=== PATIENT | male | born 1930 | race Two or more races ===

== ENCOUNTER 2016-11-30 16:07 | Emergency (ER) | payer MEDICARE, OTHER ==
[~2016-11-30] VITALS: Ht 152.4 cm; Wt 60.8 kg
[2016-11-30] MEDS ORDERED: ACETAMINOPHEN 325 MG TABLET ONE (16:28)
[2016-11-30] MEDS ORDERED: ACETAMINOPHEN 325 MG TABLET PO ONE (16:30)
[2016-11-30 18:38] VITALS: BP 149/62
== END 2016-11-30 18:39 | disposition home or self-care (01) ==
LOC: ER 16:16 → EDBD 16:16 → ER 18:39
DX: S09.90XA Unspecified injury of head, initial encounter (principal); S41.011A Laceration without foreign body of right shoulder, initial encounter; W01.198A Fall on same level from slipping, tripping and stumbling with subsequent striking against other object, initial encounter; Y93.89 Activity, other specified; Y92.89 Other specified places as the place of occurrence of the external cause; Y99.9 Unspecified external cause status
CPT/HCPCS: 70450-TC; 73030-TC; 73200-TC; A4606; Z7610